=== PATIENT | male | born 1975 | race Caucasian/White ===

== ENCOUNTER 2018-12-19 09:56 | Day surgery (SDC) | payer OTHER ==
[~2018-12-19 09:56] MED LIST: CEFAZOLIN 2 GM/50 ML (PMX) 50 ML IVPB
[2018-12-19] MEDS ORDERED: SOD CHLORIDE 0.9% 1,000 ML IV (11:30)
[2018-12-19] MEDS ORDERED: FENTAnyl 50 MCG/ML VIAL (12:41)
[2018-12-19] MEDS ORDERED: MIDAZOLAM 1 MG/ML 2 ML INJ (12:41)
[2018-12-19] MEDS: BUPIVACAINE 0.25%/EPI (SDV) 30 ML INJ (13:16)
[2018-12-19] MEDS: LIDOCAINE 1% (MPF) 30 ML INJ (13:16)
[2018-12-19] MEDS ORDERED: PROPOFOL 20 ML (13:56)
[2018-12-19] MEDS ORDERED: CEFAZOLIN 1 GM INJ (13:56)
[2018-12-19] MEDS ORDERED: ONDANSETRON 4 MG INJ (13:56)
[2018-12-19] MEDS ORDERED: LIDOCAINE 2% (SDV) 5 ML INJ (13:56)
[2018-12-19] MEDS: HYDROmorphONE 1 MG/5 ML IV SYRINGE IV ×2 (14:27→14:33)
[2018-12-19] MEDS: ONDANSETRON 4 MG INJ IV (14:27)
[2018-12-19] MEDS ORDERED: METOCLOPRAMIDE 10 MG INJ IV (14:30)
[2018-12-19] MEDS ORDERED: HYDROmorphONE 1 MG/5 ML IV SYRINGE IV (14:30)
[2018-12-19] MEDS ORDERED: DIPHENHYDRAMINE 50 MG INJ IV (14:30)
[2018-12-19] MEDS ORDERED: MEPERIDINE 25 MG INJ IV (14:30)
[2018-12-19] MEDS ORDERED: FENTAnyl 50 MCG/ML VIAL IV (14:30)
== END 2018-12-19 16:05 | disposition home or self-care (01) ==
LOC: SDS 09:56
DX: D17.1 Benign lipomatous neoplasm of skin and subcutaneous tissue of trunk (principal)
CPT/HCPCS: 11406